=== PATIENT | female | born 1995 | race Two or more races ===

== ENCOUNTER 2018-06-24 12:30 | Emergency (ER) | payer OTHER ==
[~2018-06-24] VITALS: Ht 157.5 cm; Wt 55.8 kg
--- NOTE | 2018-06-24 12:40 | NUR ---
PT BIB SELF C/O PAIN DURING URINATION AND URGENCY. ON ROOM AIR, BREATING EVENLY AND UNLABORED. ALERT AND ORIENTED X 4. KEPT COMFORTABLE, WILL CONTINUE TO MONITOR ACCORDINGLY.
[2018-06-24 13:01] LABS: APPEARANCE,URINE Clear (CLEAR); BILIRUBIN,URINE SMALL (NEGATIVE); BLOOD, URINE Small Ery/uL (NEGATIVE); COLOR,URINE Yellow (YELLOW); KETONES,URINE Negative (NEGATIVE); LEUKOCYTE ESTERASE ,URINE Trace (NEGATIVE); NITRITE, URINE Positive (NEGATIVE); PROTEIN,URINE 30 mg/dl (NEGATIVE); UGLUCOSE Negative (NEGATIVE); UROBILINOGEN,URINE 0.2 EU/dL (0.2)
[2018-06-24 13:05] LABS: BACTERIA,URINE Moderate /HPF (None Seen); RBC,URINE 0-2 /HPF (0-2); SQUAMOUS EPITHELIAL CELL,UR Few /HPF (None Seen)
[2018-06-24] MEDS ORDERED: NITROFURANTOIN/NITROFURAN MAC 100 MG CAPSULE ONE (13:19)
[2018-06-24 13:23] VITALS: BP 105/71
--- NOTE | 2018-06-24 13:25 | NUR ---
Patient discharged to home in stable condition. Written and verbal after care instructions given. Patient verbalizes understanding of instruction.
[2018-06-24] MEDS ORDERED: NITROFURANTOIN/NITROFURAN MAC 100 MG CAPSULE PO ONE (13:30)
== END 2018-06-24 13:24 | disposition home or self-care (01) ==
LOC: ER 12:38
DX: N39.0 Urinary tract infection, site not specified (principal)
CPT/HCPCS: 81001; 84703; 87086; 99283; A4606; Z7610; 81000-TC; 87186-TC